=== PATIENT | male | born 1985 | race Caucasian/White ===

== ENCOUNTER → 2021-01-29 07:45 | Outpatient (CLI) | payer OTHER, SELFPAY ==
--- NOTE | ~2021-01-29 | US_ITS ---
US abdomen complete DATE: 01/29/2021 08:02 INDICATION: Abdominal pain, excessive gas, nausea TECHNIQUE: Real-time imaging and Doppler analysis of the abdomen COMPARISON: None FINDINGS: No hepatic space occupying mass lesion. Normal hepatopedal portal venous flow direction. No gallstones or gallbladder wall thickening. Negative sonographic Rouse's sign. The common bile duct measures 3 mm, normal. The pancreatic tail is obscured by overlying bowel gas. The pancreas is otherwise unremarkable. Borderline splenic size, measuring 13.5 cm. Right kidney 11.1 cm, left kidney 11.7 cm length. No renal mass lesion or hydronephrosis. Normal caliber of the abdominal aorta. The inferior vena cava is unremarkable. IMPRESSION: Borderline splenic size Reviewed, dictated and finalized at [facility] Reviewed, dictated and finalized at [facility]. IMPRESSION: Borderline splenic size
== END ==
PROVIDERS: PCP Family Medicine; Visit Provider Family Medicine
DX: R10.9 Unspecified abdominal pain (principal)
CPT/HCPCS: 76700

== ENCOUNTER 2024-04-08 08:57 | Outpatient (CLI) | payer OTHER, SELFPAY ==
[2024-04-28 19:57] VITALS: BMI 27.1
--- NOTE | 2024-04-28 19:57 | P.SLEEP_ITS ---
Sleep Study - Home Unattended Date of Study: 04/08/24 Ordering Provider: LISA AvendañoC Interpreting Provider: Lizabeth Black, DO Home Sleep Study Type: Watch PAT Height: 1.83 m Weight: 90.718 kg Body Mass Index: 27.1 Neck Circumference (inches): 15.75 [place]: 5 Reason for Sleep Study snoring Sleep History The patient is a 38-year-old male that had a sleep study ordered for evaluation of sleep apnea.? The patient admits to snoring loudly, interruptions in breathing while asleep and difficulty falling/staying asleep.? The patient does choke or gasp at night. ?He denies having trouble breathing on his back.? He does have morning headaches.? He does have a dry or sore mouth/throat in the morning.? He denies nocturnal heartburn.? He uses the restroom twice throughout the night.? He denies having difficulty returning to sleep if he wakes up throughout the night.? He denies hypnotic or sedative use.? He denies feeling anxious about sleep.? He does feel tired or sleepy during the day.? He does feel tired in the morning.? He does have the urge to fall asleep during the day.? He denies feeling drowsy while driving.? He denies sleep paralysis, cataplexy and hypnagogic/hypnopompic hallucinations.? He does clench her grinds his teeth.? He denies kicking or jerking his legs excessively.? He denies having a restless feeling in his legs.? He goes to bed at 10:45 p.m. on work days and at midnight on his days off.? It takes him 30 minutes to fall asleep.? He gets 5.5 hours of sleep on his work days and 7 hours of sleep on his days off.? His sleep is much more restorative on his days off.? He denies taking any planned naps.? He denies dream enactment behavior.? He denies sleep walking.? He consumes 1-2 cups of caffeinated beverage per day.? He consumes 1 alcoholic beverage 1-2 nights per week.? He denies tobacco use.? He exercises 1-2 nights per week. [facility] Surgical History Surgical History History of vasectomy (~05/2020) S/P cervical disc replacement (~01/2019) Family History Family History Grandparent Family history of Alzheimer's disease Family history of lung cancer Family history of malignant neoplasm of ovary Hypertension Family history of coronary artery disease Mother Depression Father Cerebrovascular accident Social History Social History Social History: Caffeine-no caffeine for 4/5 days Smoking status: Never smoker Alcohol intake: current Alcohol use details: occasionally Substance use: never Substance use type: does not use Lack of Transportation: No Lack of Food: Never True Current Housing: Decline to Answer Concerned About Future Housing: Decline to Answer Difficulty Paying Gas/Electric Bills: Decline to Answer Difficulty Paying for Meds: Decline to Answer Currently Unemployed: Decline to Answer Education: Trade/Vocational Certificate Living arrangements: with family Occupation/Education: occupation Gender identity (if verbalized by the patient): Male Medications Home Medications ?Medication ?Instructions ?Recorded ?Confirmed ?Type multivitamin 1 tablet PO DAILY 11/30/21 02/25/24 History omega 5-mlm-qvn-fish oil 60 mg-90 1 cap PO DAILY 12/07/22 02/25/24 History mg-500 mg capsule (Fish Oil) bupropion HCl 150 mg 24 hr tablet, 150 mg PO QAM #90 tabs 03/27/24 Rx extended release Sleep Procedure The sleep study was completed using [employer] a technically adequate device with seven channels: peripheral arterial tone, actigraphy, body position, snore, respiratory movement, pulse oximetry, sleep staging, and heart rate. Prior to using the device, the patient received verbal and written instructions for its application and was provided with the help desk phone number for additional telephonic instruction with 24-hour availability of qualified personnel to answer questions. The study was scored using AASM guidelines. Sleep Architecture The total recording time is 6 hrs, 52 min. The total sleep time is 6 hrs, 3 min. Sleep latency is 20 minutes. REM latency is 52 minutes. The patient had 5 episodes of waking. Sleep architecture shows 18.2% deep sleep, 64.8% light sleep, and (as % Total Sleep Time) showed NREM (Light 64.8%; Deep 18.2%), and a 17.1% stage REM. The patient spent 65.5% of total sleep time in the supine position. Sleep efficiency was 88.11. Respiratory Analysis The overall AHI (pAHI 3%:) is 14.5. The central AHI is 0.6. The AHI was 10.7 in NREM and 30.5 in REM sleep. The AHI was 16.0 in Supine and 12.0 in Non-supine sleep. Percent of Nico Ceja respirations is 0.0. Oximetry Data The oxygen desaturation index (ROBERT 4%:) is 4.1. The mean saturation is 95%, and the lowest saturation is 89%. Time spent with saturation < 88% is 0.0 minutes. Snoring Profile Snoring average intensity is 42 dB. The patient snored above 45 decibels for 54.9 minutes, 15.1% of sleep time. Cardiac Profile The average pulse rate is 85 beats per minutes. The lowest pulse rate is 61 bpm. The highest pulse rate reported is 144 bpm. Atrial fibrillation was not detected. Premature beats occur <0.1 per minute. Assessment and Plan Assessment and Plan (1) NAMAN (obstructive sleep apnea): Code(s): G47.33 - Obstructive sleep apnea (adult) (pediatric) Status: Acute Assessment and Plan: The patient had an overall AHI of 14.5 with desaturation down to 89%. This is consistent with mild sleep apnea. Due to the patient's heart palpitations, he qualifies for treatment. I recommend that the patient be prescribed Resmed AutoPAP 5-15 cm H2O, CPAP mask/filters/tubing and heated humidity. This should be used with all episodes of sleep.? Compliance should be reviewed within 31-90 days of starting therapy for usage greater than 4 hours per night greater than 70% of the nights. The patient should be asked about symptoms such as?excessive daytime sleepiness, quality of sleep, decreased nocturia, increased?mental functioning such as memory, mood, and concentration. Data The data obtained during this sleep study is adequate for interpretation. Certification This sleep study has been reviewed by a board certified sleep medicine physician.
== END 2024-04-09 10:41 | disposition home or self-care (01) ==
LOC: ANHCSM 08:58
PROVIDERS: PCP Nurse Practitioner; Visit Provider Nurse Practitioner
DX: G47.33 Obstructive sleep apnea (adult) (pediatric) (principal); G47.8 Other sleep disorders
CPT/HCPCS: 95800